=== PATIENT | male | born 1990 | race Hispanic/Latino ===

== ENCOUNTER 2024-02-28 21:05 | Emergency (ER) | payer OTHER ==
[~2024-02-28] VITALS: Ht 876.3 cm; Wt 123.8 kg
[2024-02-28] MEDS: traMADol HCL 50 MG TABLET PO ONE (21:18)
[2024-02-28] MEDS: ORPHENADRINE 60MG/2ML IM ONE (21:18)
[2024-02-28] MEDS: TRIAMCINOLONE ACETONIDE 40 MG/ML 1ML VIAL IM ONE (21:18)
[2024-02-28 22:07] VITALS: BP 123/84; PULSE 83; RESP 16; TEMP 98.3; O2SAT 99
[2024-02-28] MEDS ORDERED: NAPR-1084 PO (22:07)
[2024-02-28] MEDS ORDERED: METH-662 PO (22:07)
== END 2024-02-28 22:14 | disposition home or self-care (01) ==
LOC: EDH 21:05
DX: M54.41 Lumbago with sciatica, right side (principal)
CPT/HCPCS: 99284; 72100; 96372 ×2; J3301; J2360